=== PATIENT | male | born 1945 | race Caucasian/White ===

== ENCOUNTER → 2017-06-04 | Outpatient (REF) | payer MEDICARE ==
[2017-06-04 16:18] LABS: VITAMIN B12 LEVEL 329 PG/ML
[2017-06-04 16:19] LABS: FOLATE 11.2 NG/ML
[2017-06-04 16:21] LABS: ALBUMIN 4.2 GM/DL (3.2-5.2); ALBUMIN/GLOBULIN RATIO 1.56 (1.00-1.93); ALKALINE PHOSPHATASE 88 U/L (45-117); ALT/SGPT 19 U/L (12-78); ANION GAP 8 MEQ/L (8-16); AST/SGOT 14 U/L (15-37); BILIRUBIN,TOTAL 0.4 MG/DL (0.2-1.0); BLOOD UREA NITROGEN 18 MG/DL (7-18); CARBON DIOXIDE LEVEL 23 MEQ/L (21-32); CHLORIDE LEVEL 108 MEQ/L (98-107); CREATININE FOR GFR 0.95 MG/DL (0.70-1.30); GLOMERULAR FILTRATION RATE > 60.0 (>42); GLUCOSE, FASTING 101 MG/DL (83-110); POTASSIUM SERUM 4.1 MEQ/L (3.5-5.1); SODIUM LEVEL 139 MEQ/L (136-145); TOTAL PROTEIN 6.9 GM/DL (6.4-8.2)
[2017-06-08 10:31] LABS: GAMMA GLOBULIN % 8.6 % (11.1-18.8)
[2017-06-08 10:32] LABS: ALBUMIN 4.55 GM/DL (3.29-5.55)
[2017-06-09 08:06] LABS: TOPIRAMATE LEVEL 5.5 ug/mL (2.0-25.0); VITAMIN E LEVEL 11.4 mg/L (5.3-17.5)
== END ==
LOC: M LABNEURO 14:39
PROVIDERS: ATTEND Psychiatry & Neurology Neurology
DX: G62.9 Polyneuropathy, unspecified (principal); Z79.899 Other long term (current) drug therapy; Z51.81 Encounter for therapeutic drug level monitoring

== ENCOUNTER → 2017-06-05 | Outpatient (CLI) | payer MEDICARE | LOC: M WUC 12:49 | PROVIDERS: ATTEND Ophthalmology | DX: M35.00 Sjogren syndrome, unspecified (principal) ==